=== PATIENT | female | born 1945 | race Caucasian/White ===

== ENCOUNTER → 2018-06-12 09:08 | Outpatient (CLI) | payer OTHER, SELFPAY ==
--- NOTE | 2018-06-12 | DI.MG.S_ITS ---
BILATERAL DIGITAL SCREENING MAMMOGRAM 3D/2D WITH CAD: 06/12/2018 CLINICAL: Routine screening. Comparison is made to exams dated: 11/26/2016 mammogram, 05/18/2016 mammogram, 04/26/2016 mammogram, and 03/09/2015 mammogram - [facility]. There are scattered fibroglandular elements in both breasts. Current study was also evaluated with a Computer Aided Detection (CAD) system. No significant masses, calcifications, or other findings are seen in either breast. There has been no significant interval change. IMPRESSION: NEGATIVE There is no mammographic evidence of malignancy. A 1 year screening mammogram is recommended. This exam was interpreted at Station ID: [id number]. NOTE: For mammograms, a report in lay terms will be sent to the patient. Approximately 15% of breast malignancies will not be visualized mammographically. In the management of a palpable breast mass, a negative mammogram must not discourage biopsy of a clinically suspicious lesion. Electronically Signed By: Elizabeth rodriguez/[email or web address]:06/12/2018 12:17:51 letter sent: Normal Exam ACR BI-RADS Category 1: Negative 3341F
[2018-06-12 10:46] LABS: Add Manual Diff / Slide Review NO; Basophils Percent Auto 0.6 % (0-2); Eosinophils Percent Auto 2.8 % (2-4); Hematocrit 36.2 % (36-46); Lymphocytes Percent Auto 18.6 % (25-40); Mean Corpuscular HGB Conc 33.1 % (30-36); Mean Corpuscular Hemoglobin 32.5 PG (26-34); Mean Corpuscular Volume 98.1 fL (80-100); Monocytes Percent Auto 8.7 % (3-14); Neutrophils Absolute Auto 4400 /uL (3000-5900); Neutrophils Percent Auto 69.3 % (50-75); Platelet Count 215 X10^3/uL (150-400); Red Blood Cell Count 3.69 X10^6/uL (4.0-5.2); Red Cell Distribution Width 13.7 % (11.6-14.8); White Blood Cell Count 6.3 X10^3/uL (4.5-11.0)
[2018-06-12 12:18] LABS: TSH w/ Reflex to FT4 2.85 uIU/mL (0.47-4.68)
[2018-06-12 12:58] LABS: Alanine Aminotransferase 16 IU/L (9-52); Albumin 4.2 g/dL (3.5-5.0); Albumin Globulin Ratio 1.4 (1.0-2.8); Alkaline Phosphatase 57 U/L (38-126); Aspartate Aminotransferase 26 IU/L (14-36); BUN Creatinine Ratio 27.1 (6-22); Bilirubin Total 0.5 mg/dL (0.2-1.3); Blood Urea Nitrogen 19 mg/dL (7-17); Calcium 9.1 mg/dL (8.4-10.2); Carbon Dioxide 24 mmol/L (22-32); Chloride 100 mmol/L (98-107); Cholesterol 195 mg/dL (140-199); Estimated Glomerular Filt Rate > 60.0 mL/min (>60); Globulin 2.9 g/dL (1.7-4.1); Glucose 89 mg/dL (80-110); HDL Cholesterol 103 mg/dL (40-60); HEMOLYSIS < 15 (0-50); LDL Cholesterol Calculated 49 mg/dL (<100); Potassium 4.3 mmol/L (3.4-5.1); Sodium 137 mmol/L (137-145); Total Protein 7.1 g/dL (6.3-8.2); Triglycerides 217 mg/dL (35-150)
[2018-06-26 20:49] LABS: Fecal Immunochemical Test NOT DETECTED
== END ==
PROVIDERS: PCP Family Medicine; Visit Provider Family Medicine
DX: Z12.31 Encounter for screening mammogram for malignant neoplasm of breast (principal); I10 Essential (primary) hypertension
CPT/HCPCS: 36415; 77063; 77067; 80053; 80061; 82274; 84443; 85025

== ENCOUNTER → 2018-06-26 08:51 | Outpatient (CLI) | payer OTHER, SELFPAY | PROVIDERS: PCP Family Medicine; Visit Provider Family Medicine | DX: Z53.8 Procedure and treatment not carried out for other reasons (principal) ==

== ENCOUNTER → 2019-06-16 08:45 | Outpatient (CLI) | payer OTHER, SELFPAY ==
--- NOTE | 2019-06-16 | DI.MG.S_ITS ---
BILATERAL DIGITAL SCREENING MAMMOGRAM 3D/2D WITH CAD: 06/16/2019 CLINICAL: Routine screening. Comparison is made to exams dated: 06/12/2018 mammogram, 04/26/2016 mammogram, and 03/09/2015 mammogram - [facility]. There are scattered fibroglandular elements in both breasts. Current study was also evaluated with a Computer Aided Detection (CAD) system. No significant masses, calcifications, or other findings are seen in either breast. There has been no significant interval change. IMPRESSION: NEGATIVE There is no mammographic evidence of malignancy. A 1 year screening mammogram is recommended. This exam was interpreted at Station ID: [id number]. NOTE: For mammograms, a report in lay terms will be sent to the patient. Approximately 15% of breast malignancies will not be visualized mammographically. In the management of a palpable breast mass, a negative mammogram must not discourage biopsy of a clinically suspicious lesion. Electronically Signed By: Vadim yarbrough/anya:06/16/2019 09:53:17 letter sent: Normal Exam ACR BI-RADS Category 1: Negative 3341F
[2019-06-16 10:50] LABS: Add Manual Diff / Slide Review NO; Basophils Absolute Auto 0 /uL (0-100); Basophils Percent Auto 0.9 % (0-2); Eosinophils Absolute Auto 200 /uL (0-450); Eosinophils Percent Auto 3.3 % (2-4); Hematocrit 35.4 % (36-46); Hemoglobin 11.9 g/dL (12.0-16.0); Lymphocytes Absolute Auto 1000 /uL (1100-4500); Lymphocytes Percent Auto 20.8 % (25-40); Mean Corpuscular HGB Conc 33.6 % (30-36); Mean Corpuscular Hemoglobin 32.9 PG (26-34); Mean Corpuscular Volume 97.8 fL (80-100); Monocytes Absolute Auto 400 /uL (0-900); Monocytes Percent Auto 7.9 % (3-14); Neutrophils Absolute Auto 3300 /uL (1500-7000); Neutrophils Percent Auto 67.1 % (50-75); Platelet Count 243 X10^3/uL (150-400); Red Blood Cell Count 3.62 X10^6/uL (4.0-5.2); White Blood Cell Count 4.9 X10^3/uL (4.5-11.0)
[2019-06-16 11:08] LABS: Alanine Aminotransferase 12 IU/L (<35); Albumin 4.1 g/dL (3.5-5.0); Albumin Globulin Ratio 1.4 (1.0-2.8); Alkaline Phosphatase 53 U/L (38-126); Aspartate Aminotransferase 20 IU/L (14-36); BUN Creatinine Ratio 27.1 (6-22); Bilirubin Total 0.3 mg/dL (0.2-1.3); Blood Urea Nitrogen 19 mg/dL (7-17); Calcium 9.3 mg/dL (8.4-10.2); Carbon Dioxide 28 mmol/L (22-32); Chloride 100 mmol/L (98-107); Cholesterol 213 mg/dL (140-199); Estimated Glomerular Filt Rate > 60.0 mL/min (>60); Globulin 2.9 g/dL (1.7-4.1); Glucose 79 mg/dL (80-110); HDL Cholesterol 98 mg/dL (40-60); HEMOLYSIS < 15 (0-50); LDL Cholesterol Calculated 49 mg/dL (<100); Potassium 4.5 mmol/L (3.4-5.1); Sodium 135 mmol/L (137-145); Triglycerides 331 mg/dL (35-150)
[2019-06-16 11:37] LABS: TSH w/ Reflex to FT4 2.69 uIU/mL (0.47-4.68)
== END ==
PROVIDERS: PCP Family Medicine; Visit Provider Family Medicine
DX: Z12.31 Encounter for screening mammogram for malignant neoplasm of breast (principal); I10 Essential (primary) hypertension
CPT/HCPCS: 36415; 77063; 77067; 80053; 80061; 84443; 85025

== ENCOUNTER → 2020-06-21 10:34 | Outpatient (CLI) | payer OTHER, SELFPAY ==
--- NOTE | 2020-06-21 | DI.MG.S_ITS ---
BILATERAL DIGITAL SCREENING MAMMOGRAM 3D/2D WITH CAD: 06/21/2020 CLINICAL: Routine screening. Comparison is made to exams dated: 06/16/2019 mammogram, 06/12/2018 mammogram, 04/26/2016 mammogram, 11/26/2016 mammogram, 05/18/2016 mammogram, and 03/09/2015 mammogram - [facility]. There are scattered fibroglandular elements in both breasts. Current study was also evaluated with a Computer Aided Detection (CAD) system. No significant masses, calcifications, or other findings are seen in either breast. There has been no significant interval change. IMPRESSION: NEGATIVE There is no mammographic evidence of malignancy. A 1 year screening mammogram is recommended. This exam was interpreted at Station ID: [id number]. NOTE: For mammograms, a report in lay terms will be sent to the patient. Approximately 15% of breast malignancies will not be visualized mammographically. In the management of a palpable breast mass, a negative mammogram must not discourage biopsy of a clinically suspicious lesion. Electronically Signed By: Goldy grier/anya:06/21/2020 14:29:09 letter sent: Normal Exam ACR BI-RADS Category 1: Negative 3341F
== END ==
PROVIDERS: PCP Family Medicine; Referring Provider Family Medicine; Visit Provider Family Medicine
DX: Z12.31 Encounter for screening mammogram for malignant neoplasm of breast (principal)
CPT/HCPCS: 77063; 77067

== ENCOUNTER → 2020-07-14 09:19 | Outpatient (CLI) | payer OTHER, SELFPAY ==
[2020-07-14 11:15] LABS: Alanine Aminotransferase 19 IU/L (<35); Albumin 4.2 g/dL (3.5-5.0); Albumin Globulin Ratio 1.4 (1.0-2.8); Alkaline Phosphatase 55 U/L (38-126); Aspartate Aminotransferase 40 IU/L (14-36); BUN Creatinine Ratio 24.5 (6-22); Bilirubin Total 0.4 mg/dL (0.2-1.3); Blood Urea Nitrogen 24 mg/dL (7-17); Calcium 9.4 mg/dL (8.4-10.2); Carbon Dioxide 26 mmol/L (22-32); Chloride 101 mmol/L (98-107); Cholesterol 214 mg/dL (140-199); Estimated Glomerular Filt Rate 55.5 mL/min (>60); Glucose 80 mg/dL (80-110); HEMOLYSIS < 15 (0-50); Potassium 5.2 mmol/L (3.4-5.1); Sodium 133 mmol/L (137-145); Total Protein 7.2 g/dL (6.3-8.2); Triglycerides 340 mg/dL (35-150)
[2020-07-14 11:25] LABS: HDL Cholesterol 130 mg/dL (40-60); LDL Cholesterol Calculated 16 mg/dL (<100)
[2020-07-15 14:07] LABS: Fecal Immunochemical Test Negative (Negative)
== END ==
PROVIDERS: PCP Family Medicine; Referring Provider Family Medicine; Visit Provider Family Medicine
DX: E78.5 Hyperlipidemia, unspecified (principal); I10 Essential (primary) hypertension; Z12.11 Encounter for screening for malignant neoplasm of colon
CPT/HCPCS: 36415; 80053; 80061; 82274

== ENCOUNTER → 2020-09-21 10:51 | Outpatient (CLI) | payer OTHER, SELFPAY ==
[2020-09-21 12:08] LABS: Blood Urea Nitrogen 17 mg/dL (7-17); Calcium 8.8 mg/dL (8.4-10.2); Carbon Dioxide 28 mmol/L (22-32); Chloride 100 mmol/L (98-107); Estimated Glomerular Filt Rate > 60.0 mL/min (>60); Glucose 88 mg/dL (80-110); HEMOLYSIS < 15 (0-50); Potassium 4.8 mmol/L (3.4-5.1); Sodium 131 mmol/L (137-145)
== END ==
PROVIDERS: PCP Family Medicine; Referring Provider Family Medicine; Visit Provider Family Medicine
DX: E78.5 Hyperlipidemia, unspecified (principal); I10 Essential (primary) hypertension
CPT/HCPCS: 36415; 80048

== ENCOUNTER → 2022-09-12 18:30 | Outpatient (ROUT) | payer OTHER, SELFPAY | PROVIDERS: PCP Family Medicine; Visit Provider Dermatology | DX: L08.9 Local infection of the skin and subcutaneous tissue, unspecified (principal) | CPT/HCPCS: 87070; 87075; 87077; 87147; 87185; 87186; 87205 ==

== ENCOUNTER → 2022-10-15 11:35 | Outpatient (CLI) | payer OTHER, SELFPAY ==
--- NOTE | 2022-10-15 | DI.MG.S_ITS ---
BILATERAL DIGITAL SCREENING MAMMOGRAM 3D/2D WITH CAD: 10/15/2022 CLINICAL: Routine screening. Comparison is made to exams dated: 06/21/2020 mammogram, 06/16/2019 mammogram, and 06/12/2018 mammogram - . There are scattered areas of fibroglandular density in both breasts (category b / 25%-50% glandular tissue). Current study was also evaluated with a Computer Aided Detection (CAD) system. No significant masses, calcifications, or other findings are seen in either breast. There has been no significant interval change. IMPRESSION: NEGATIVE There is no mammographic evidence of malignancy. A 1 year screening mammogram is recommended. Based on the Tyrer Cuzick model (a risk assessment model) the patient's lifetime risk is 4.0% and her 10 year risk is 0.0%. According to the ACR, ACS, and NCCN guidelines, an annual breast MRI exam along with mammogram is recommended if the patient's lifetime risk is 20% or greater. This exam was interpreted at Station ID: [id number]. NOTE: For mammograms, a report in lay terms will be sent to the patient. Approximately 15% of breast malignancies will not be visualized mammographically. In the management of a palpable breast mass, a negative mammogram must not discourage biopsy of a clinically suspicious lesion. Electronically Signed By: Vadim israel/anya:10/15/2022 16:12:07 letter sent: Normal Exam ACR BI-RADS Category 1: Negative 3341F
== END ==
PROVIDERS: PCP Family Medicine; Referring Provider Family Medicine; Visit Provider Family Medicine
DX: Z12.31 Encounter for screening mammogram for malignant neoplasm of breast (principal)
CPT/HCPCS: 77063; 77067

== ENCOUNTER → 2023-01-25 08:04 | Outpatient (CLI) | payer OTHER, SELFPAY ==
[2023-01-25 08:55] LABS: Add Manual Diff / Slide Review NO; Basophils Absolute Auto 0 /uL (0-100); Eosinophils Absolute Auto 100 /uL (0-450); Eosinophils Percent Auto 3.7 % (2-4); Hematocrit 34.6 % (36-46); Hemoglobin 11.7 g/dL (12.0-16.0); Lymphocytes Absolute Auto 1100 /uL (1100-4500); Mean Corpuscular HGB Conc 33.9 % (30-36); Mean Corpuscular Hemoglobin 32.5 PG (26-34); Mean Corpuscular Volume 95.9 fL (80-100); Monocytes Absolute Auto 500 /uL (0-900); Monocytes Percent Auto 11.4 % (3-14); Neutrophils Absolute Auto 2300 /uL (1500-7000); Neutrophils Percent Auto 56.9 % (50-75); Platelet Count 275 X10^3/uL (150-400); Red Blood Cell Count 3.61 X10^6/uL (4.0-5.2); Red Cell Distribution Width 13.1 % (11.6-14.8)
[2023-01-25 09:41] LABS: Alanine Aminotransferase 14 IU/L (<35); Albumin Globulin Ratio 1.3 (1.0-2.8); Alkaline Phosphatase 44 U/L (38-126); Aspartate Aminotransferase 19 IU/L (14-36); Bilirubin Total 0.4 mg/dL (0.2-1.3); Blood Urea Nitrogen 17 mg/dL (7-17); Calcium 9.1 mg/dL (8.4-10.2); Carbon Dioxide 26 mmol/L (22-32); Chloride 92 mmol/L (98-107); Estimated Glomerular Filt Rate > 60 mL/min (>60); Glucose 89 mg/dL (80-110); HEMOLYSIS < 15 (0-50); Potassium 5.3 mmol/L (3.4-5.1); Sodium 125 mmol/L (137-145)
[2023-01-25 09:44] LABS: Microalbumi Creatinin Ratio Ur 12.3 ug/mg CR (<30); Microalbumin Urine Random 1.1 mg/dL (0-1.6)
== END ==
PROVIDERS: PCP Family Medicine; Referring Provider Family Medicine; Visit Provider Family Medicine
DX: I10 Essential (primary) hypertension (principal); K21.9 Gastro-esophageal reflux disease without esophagitis; Z79.890 Hormone replacement therapy
CPT/HCPCS: 36415; 80053; 82043; 82570; 85025

== ENCOUNTER → 2024-11-24 14:46 | Outpatient (CLI) | payer OTHER, MEDICAID, SELFPAY | PROVIDERS: PCP Family Medicine; Referring Provider Family Medicine; Visit Provider Surgery | DX: T81.89XA Other complications of procedures, not elsewhere classified, initial encounter (principal); S01.00XA Unspecified open wound of scalp, initial encounter | CPT/HCPCS: 87070; 87075; 87205 ==

== ENCOUNTER → 2024-11-25 11:49 | Outpatient (CLI) | payer OTHER, MEDICAID, SELFPAY | PROVIDERS: PCP Family Medicine; Referring Provider Family Medicine; Visit Provider Surgery | DX: T81.89XA Other complications of procedures, not elsewhere classified, initial encounter (principal); S01.00XA Unspecified open wound of scalp, initial encounter | CPT/HCPCS: 11042; 99203; 99213 ==

== ENCOUNTER → 2024-12-02 14:00 | Outpatient (CLI) | payer OTHER, MEDICAID, SELFPAY | PROVIDERS: PCP Family Medicine; Referring Provider Family Medicine; Visit Provider Surgery | DX: T81.89XA Other complications of procedures, not elsewhere classified, initial encounter (principal); S01.00XA Unspecified open wound of scalp, initial encounter | CPT/HCPCS: 11042 ==

== ENCOUNTER → 2024-12-08 11:28 | Outpatient (CLI) | payer OTHER, MEDICAID, SELFPAY | PROVIDERS: PCP Family Medicine; Referring Provider Family Medicine; Visit Provider Surgery | DX: T81.89XA Other complications of procedures, not elsewhere classified, initial encounter (principal); S01.00XA Unspecified open wound of scalp, initial encounter | CPT/HCPCS: 11044 ==

== ENCOUNTER → 2024-12-16 15:46 | Outpatient (CLI) | payer OTHER, SELFPAY | LOC: WC 15:47 | PROVIDERS: PCP Family Medicine; Referring Provider Family Medicine; Visit Provider Surgery | DX: S01.00XA Unspecified open wound of scalp, initial encounter (principal); L98.8 Other specified disorders of the skin and subcutaneous tissue; I10 Essential (primary) hypertension | CPT/HCPCS: 11042 ==

== ENCOUNTER → 2024-12-23 10:56 | Outpatient (CLI) | payer OTHER, SELFPAY | LOC: WC 10:57 | PROVIDERS: PCP Family Medicine; Referring Provider Family Medicine; Visit Provider Surgery | DX: T81.89XA Other complications of procedures, not elsewhere classified, initial encounter (principal); S01.00XA Unspecified open wound of scalp, initial encounter; I10 Essential (primary) hypertension; L98.8 Other specified disorders of the skin and subcutaneous tissue | CPT/HCPCS: 11042; 99213 ==

== ENCOUNTER → 2024-12-30 10:40 | Outpatient (CLI) | payer OTHER, MEDICAID, SELFPAY | PROVIDERS: PCP Family Medicine; Referring Provider Family Medicine; Visit Provider Surgery | DX: T81.89XA Other complications of procedures, not elsewhere classified, initial encounter (principal); S01.00XA Unspecified open wound of scalp, initial encounter; Z85.828 Personal history of other malignant neoplasm of skin | CPT/HCPCS: 11042 ==

== ENCOUNTER → 2025-01-06 10:59 | Outpatient (CLI) | payer OTHER, MEDICAID, SELFPAY | PROVIDERS: PCP Family Medicine; Referring Provider Family Medicine; Visit Provider Surgery | DX: T81.89XA Other complications of procedures, not elsewhere classified, initial encounter (principal); S01.00XA Unspecified open wound of scalp, initial encounter | CPT/HCPCS: 11042 ==

== ENCOUNTER → 2025-01-13 13:27 | Outpatient (CLI) | payer OTHER, SELFPAY | LOC: WC 13:28 | PROVIDERS: PCP Family Medicine; Referring Provider Family Medicine; Visit Provider Surgery | DX: T81.89XA Other complications of procedures, not elsewhere classified, initial encounter (principal); S01.00XA Unspecified open wound of scalp, initial encounter | CPT/HCPCS: 11042 ==

== ENCOUNTER → 2025-01-20 15:13 | Outpatient (CLI) | payer OTHER, MEDICAID, SELFPAY | PROVIDERS: PCP Family Medicine; Referring Provider Family Medicine; Visit Provider Surgery | DX: T81.89XA Other complications of procedures, not elsewhere classified, initial encounter (principal); S01.00XA Unspecified open wound of scalp, initial encounter; Z85.828 Personal history of other malignant neoplasm of skin | CPT/HCPCS: 11042; 99213 ==

== ENCOUNTER → 2025-01-27 10:11 | Outpatient (CLI) | payer OTHER, MEDICAID, SELFPAY | LOC: WC 10:12 | PROVIDERS: PCP Family Medicine; Referring Provider Family Medicine; Visit Provider Surgery | DX: T81.89XA Other complications of procedures, not elsewhere classified, initial encounter (principal); S01.00XA Unspecified open wound of scalp, initial encounter; Z85.828 Personal history of other malignant neoplasm of skin | CPT/HCPCS: 11042 ==

== ENCOUNTER → 2025-02-03 11:41 | Outpatient (CLI) | payer OTHER, MEDICAID, SELFPAY | PROVIDERS: PCP Family Medicine; Referring Provider Family Medicine; Visit Provider Surgery | DX: T81.89XA Other complications of procedures, not elsewhere classified, initial encounter (principal); S01.00XA Unspecified open wound of scalp, initial encounter; Z85.828 Personal history of other malignant neoplasm of skin | CPT/HCPCS: 15275; Q4187 ==

== ENCOUNTER → 2025-02-10 10:59 | Outpatient (CLI) | payer OTHER, MEDICAID, SELFPAY | LOC: WC 11:00 | PROVIDERS: PCP Family Medicine; Referring Provider Family Medicine; Visit Provider Surgery | DX: T81.89XA Other complications of procedures, not elsewhere classified, initial encounter (principal); S01.00XA Unspecified open wound of scalp, initial encounter; Z85.828 Personal history of other malignant neoplasm of skin | CPT/HCPCS: 15275; Q4187 ==

== ENCOUNTER → 2025-02-17 09:21 | Outpatient (CLI) | payer OTHER, MEDICAID, SELFPAY | PROVIDERS: PCP Family Medicine; Referring Provider Family Medicine; Visit Provider Surgery | DX: T81.89XA Other complications of procedures, not elsewhere classified, initial encounter (principal); S01.00XA Unspecified open wound of scalp, initial encounter | CPT/HCPCS: 15275; 99213; Q4187 ==

== ENCOUNTER → 2025-02-24 09:43 | Outpatient (CLI) | payer OTHER, MEDICAID, SELFPAY | LOC: WC 09:43 | PROVIDERS: PCP Family Medicine; Referring Provider Family Medicine; Visit Provider Nurse Practitioner Family | DX: T81.89XA Other complications of procedures, not elsewhere classified, initial encounter (principal); S01.00XA Unspecified open wound of scalp, initial encounter; Z85.828 Personal history of other malignant neoplasm of skin | CPT/HCPCS: 15275; 99213; Q4187 ==

== ENCOUNTER → 2025-03-03 10:44 | Outpatient (CLI) | payer OTHER, MEDICAID, SELFPAY | LOC: WC 10:45 | PROVIDERS: PCP Family Medicine; Referring Provider Family Medicine; Visit Provider Surgery | DX: T81.89XA Other complications of procedures, not elsewhere classified, initial encounter (principal); S01.00XA Unspecified open wound of scalp, initial encounter; C44.42 Squamous cell carcinoma of skin of scalp and neck | CPT/HCPCS: 15275; Q4187 ==

== ENCOUNTER → 2025-03-10 13:14 | Outpatient (CLI) | payer OTHER, MEDICAID, SELFPAY | LOC: WC 13:15 | PROVIDERS: PCP Family Medicine; Referring Provider Family Medicine; Visit Provider Surgery | DX: S01.00XA Unspecified open wound of scalp, initial encounter (principal); T81.89XA Other complications of procedures, not elsewhere classified, initial encounter; L92.9 Granulomatous disorder of the skin and subcutaneous tissue, unspecified; C44.42 Squamous cell carcinoma of skin of scalp and neck; I10 Essential (primary) hypertension | CPT/HCPCS: 11042 ==

== ENCOUNTER → 2025-03-24 11:41 | Outpatient (CLI) | payer OTHER, MEDICAID, SELFPAY ==
[2025-03-24 15:13] LABS: Alanine Aminotransferase 16 IU/L (<35); Albumin 4.3 g/dL (3.5-5.0); Albumin Globulin Ratio 1.3 (1.0-2.8); Alkaline Phosphatase 58 U/L (38-126); Blood Urea Nitrogen 26 mg/dL (7-17); Calcium 9.1 mg/dL (8.4-10.2); Carbon Dioxide 21 mmol/L (22-32); Chloride 95 mmol/L (98-107); Estimated Glomerular Filt Rate 52 mL/min (>60); Globulin 3.3 g/dL (1.7-4.1); Glucose 93 mg/dL (70-99); HEMOLYSIS 16 (0-50); Potassium 5.0 mmol/L (3.4-5.1); Sodium 126 mmol/L (137-145); Total Protein 7.6 g/dL (6.3-8.2)
== END ==
PROVIDERS: PCP Family Medicine; Referring Provider Family Medicine; Visit Provider Family Medicine
DX: I10 Essential (primary) hypertension (principal); R60.0 Localized edema
CPT/HCPCS: 80053; 87070; 87205

== ENCOUNTER → 2025-04-07 14:29 | Outpatient (CLI) | payer OTHER, MEDICAID, SELFPAY | LOC: WC 14:30 | PROVIDERS: PCP Family Medicine; Referring Provider Family Medicine; Visit Provider Surgery | DX: T81.89XA Other complications of procedures, not elsewhere classified, initial encounter (principal); S01.00XA Unspecified open wound of scalp, initial encounter; L92.9 Granulomatous disorder of the skin and subcutaneous tissue, unspecified; C44.42 Squamous cell carcinoma of skin of scalp and neck; I10 Essential (primary) hypertension | CPT/HCPCS: 15275 ==

== ENCOUNTER → 2025-04-14 10:00 | Outpatient (CLI) | payer OTHER, MEDICAID, SELFPAY | LOC: WC 10:01 | PROVIDERS: PCP Family Medicine; Referring Provider Family Medicine; Visit Provider Physician Assistant | DX: T81.89XA Other complications of procedures, not elsewhere classified, initial encounter (principal); S01.00XA Unspecified open wound of scalp, initial encounter | CPT/HCPCS: 11042; 99213 ==

== ENCOUNTER → 2025-04-21 15:11 | Outpatient (CLI) | payer OTHER, MEDICAID, SELFPAY | LOC: WC 15:26 | PROVIDERS: PCP Family Medicine; Referring Provider Family Medicine; Visit Provider Surgery | DX: T81.89XA Other complications of procedures, not elsewhere classified, initial encounter (principal); S01.00XA Unspecified open wound of scalp, initial encounter; C44.92 Squamous cell carcinoma of skin, unspecified | CPT/HCPCS: 15275; Q4187 ==

== ENCOUNTER → 2025-04-28 10:12 | Outpatient (CLI) | payer OTHER, MEDICAID, SELFPAY | LOC: WC 10:12 | PROVIDERS: PCP Family Medicine; Referring Provider Family Medicine; Visit Provider Surgery | DX: S01.00XA Unspecified open wound of scalp, initial encounter (principal); T81.89XA Other complications of procedures, not elsewhere classified, initial encounter; C44.92 Squamous cell carcinoma of skin, unspecified | CPT/HCPCS: 15275; Q4186 ==

== ENCOUNTER → 2025-05-05 12:00 | Outpatient (CLI) | payer OTHER, MEDICAID, SELFPAY | LOC: WC 12:03 | PROVIDERS: PCP Family Medicine; Referring Provider Family Medicine; Visit Provider Surgery | DX: T81.89XA Other complications of procedures, not elsewhere classified, initial encounter (principal); S01.00XA Unspecified open wound of scalp, initial encounter; C44.92 Squamous cell carcinoma of skin, unspecified | CPT/HCPCS: 15275; Q4186 ==

== ENCOUNTER → 2025-05-12 10:35 | Outpatient (CLI) | payer OTHER, MEDICAID, SELFPAY | LOC: WC 10:36 | PROVIDERS: PCP Family Medicine; Referring Provider Family Medicine; Visit Provider Surgery | DX: T81.89XA Other complications of procedures, not elsewhere classified, initial encounter (principal); S01.00XA Unspecified open wound of scalp, initial encounter; Z85.828 Personal history of other malignant neoplasm of skin; Z87.891 Personal history of nicotine dependence; I10 Essential (primary) hypertension | CPT/HCPCS: 11042; 99213 ==

== ENCOUNTER → 2025-05-19 15:54 | Outpatient (CLI) | payer OTHER, MEDICAID, SELFPAY | LOC: WC 15:55 | PROVIDERS: PCP Family Medicine; Referring Provider Family Medicine; Visit Provider Surgery | DX: T81.89XA Other complications of procedures, not elsewhere classified, initial encounter (principal); S01.00XA Unspecified open wound of scalp, initial encounter; L98.8 Other specified disorders of the skin and subcutaneous tissue; L92.9 Granulomatous disorder of the skin and subcutaneous tissue, unspecified; C44.92 Squamous cell carcinoma of skin, unspecified; I10 Essential (primary) hypertension | CPT/HCPCS: 11042 ==

== ENCOUNTER → 2025-05-26 16:34 | Outpatient (CLI) | payer OTHER, MEDICAID, SELFPAY | LOC: WC 16:35 | PROVIDERS: PCP Family Medicine; Referring Provider Family Medicine; Visit Provider Surgery | DX: T81.89XA Other complications of procedures, not elsewhere classified, initial encounter (principal); L98.8 Other specified disorders of the skin and subcutaneous tissue; S01.00XA Unspecified open wound of scalp, initial encounter; C44.92 Squamous cell carcinoma of skin, unspecified | CPT/HCPCS: 11042 ==

== ENCOUNTER → 2025-06-02 10:54 | Outpatient (CLI) | payer OTHER, MEDICAID, SELFPAY | LOC: WC 10:57 | PROVIDERS: PCP Family Medicine; Referring Provider Family Medicine; Visit Provider Surgery | DX: T81.89XA Other complications of procedures, not elsewhere classified, initial encounter (principal); S01.00XA Unspecified open wound of scalp, initial encounter; C44.92 Squamous cell carcinoma of skin, unspecified | CPT/HCPCS: 11042 ==

== ENCOUNTER → 2025-06-09 11:54 | Outpatient (CLI) | payer OTHER, MEDICAID, SELFPAY | LOC: WC 11:57 | PROVIDERS: PCP Family Medicine; Referring Provider Family Medicine; Visit Provider Surgery | DX: T81.89XA Other complications of procedures, not elsewhere classified, initial encounter (principal); S01.00XA Unspecified open wound of scalp, initial encounter; L98.8 Other specified disorders of the skin and subcutaneous tissue; L92.9 Granulomatous disorder of the skin and subcutaneous tissue, unspecified; Z85.828 Personal history of other malignant neoplasm of skin; I10 Essential (primary) hypertension | CPT/HCPCS: 11042 ==

== ENCOUNTER → 2025-06-16 11:59 | Outpatient (CLI) | payer OTHER, MEDICAID, SELFPAY | LOC: WC 11:59 | PROVIDERS: PCP Family Medicine; Referring Provider Family Medicine; Visit Provider Surgery | DX: T81.89XA Other complications of procedures, not elsewhere classified, initial encounter (principal); S01.00XA Unspecified open wound of scalp, initial encounter; C44.92 Squamous cell carcinoma of skin, unspecified | CPT/HCPCS: 11042; 99213 ==

== ENCOUNTER → 2025-06-23 11:31 | Outpatient (CLI) | payer OTHER, MEDICAID, SELFPAY | LOC: WC 11:32 | PROVIDERS: PCP Family Medicine; Referring Provider Family Medicine; Visit Provider Surgery | DX: T81.89XA Other complications of procedures, not elsewhere classified, initial encounter (principal); S01.00XA Unspecified open wound of scalp, initial encounter; C44.92 Squamous cell carcinoma of skin, unspecified | CPT/HCPCS: 11042 ==

== ENCOUNTER → 2025-06-30 10:26 | Outpatient (CLI) | payer OTHER, MEDICAID, SELFPAY ==
--- OUTSIDE RECORDS SUMMARY | 2025-07-02 15:55 | XMS_ITS | Clinical Summary ---
Author Organization [facility] Address [address] [place] [address] Care Team Providers Care Creative Services Director Name Role Phone Pcp, None Selected Primary Care Provider Unavail able Allergies No known active allergies Medications fluorouraciL (EFUDEX) 5 % cream Apply topically 2 Active estradioL (ESTRACE) 1 mg tablet Take 1 mg by mouth daily 1 Active omeprazole (PriLOSEC) 20 mg capsule 2 Active triamterene-hyd rochlorothiazid (MAXZIDE-25) 37.5-25 mg Take 2 tablets by mouth daily 1 Active mupirocin (BACTROBAN) 2 % ointmentIndicat ions:Nasal vestibulitis,Ch ronic rhinitis Apply to the nostrils 3 times daily for 2 weeks 30 g 1 3 Active Active Problems No known active problems Family History Medical History Relation Comments Cancer Father Hearing loss Father Hypertension Father Heart disease Mother Hypertension Mother Relation Status Comments Father Mother Social History Tobacco Use Types Packs/Day Years Used Date Smoking Tobacco: Former Cigarettes 1 20 - 2000 Smokeless Tobacco: Never Alcohol Use Standard Drinks/Week Comments Yes 21 (1 standard drink = 0.6 oz pu re alcohol) 3 drinks daily Comments Unknown Sex and Gender Information Value Date Recorded Sex Assigned at Not on file Legal Sex Female 11:20 AM PDT Gender Identity Not on file Sexual Orientation Not on file Last Filed Vital Signs Vital Sign Reading Time Taken Comments Blood Pressure 179/78 05/08/2022 9:55 AM PDT Pulse 67 05/08/2022 9:50 AM PDT Temperature 36.3 C (97.3 F) 05/08/2022 9:50 AM PDT Respiratory Rate - - Oxygen Saturation 100% 05/08/2022 9:50 AM PDT Inhaled Oxygen Concentration - - Weight 67.5 kg (148 lb 14.4 oz) 05/08/2022 9:50 AM PDT Height 157.5 cm (5' 2) 05/08/2022 9:50 AM PDT Body Mass Index 27.23 05/08/2022 9:50 AM PDT Plan of Treatment Health Maintenance Due Date Last Done Comments Depression Screening (PHQ-2) 1957 Fall Risk Screening 2010 RSV Patients Over 60 years OR qualifying ( Patients) (1 - 1-dose 75+ series) 2020 COVID-19 Vaccine ( - 2024- season) 2025 12/07/2021, 05/11/2021, 11/03/2020, Additional history exists Influenza Vaccine (#1) 2025 , 06/25/2019, 06/26/2017, Additional history exists DTaP,Tdap,and Td Vaccines (3 - Td or Tdap) 02/16/2026 02/17/2016, 09/06/2010 HM Pneumococcal Adult 50+ Completed 2016, 02/17/2016, 12/27/2014 Zoster Vaccines Completed 12/29/2020, 08/26/2020 HPV Vaccines Aged Out No longer eligi ble based on patient's age to complete this topic Hepatitis A Vaccines Aged Out No long er eligible based on patient's age to complete this topic Hepatitis B Vaccines Aged Out No long er eligible based on patient's age to complete this topic IPV Vaccines Aged Out No longer eligi ble based on patient's age to complete this topic MMR Vaccines Aged Out No longer eligi ble based on patient's age to complete this topic Insurance [facility] Care Teams Creative Services Director Relationship Specialty Start Date End Date Pcp, None Selected PCP - General 11/26/24
--- OUTSIDE RECORDS SUMMARY | 2025-07-02 15:55 | XMS_ITS | Encounter Summary ---
Author Organization [facility] Address [address] [place] [address] Care Team Providers Care Power Press Supervisor Name Role Phone Pcp, None Selected Primary Care Provider Unavail able Reason for Visit * Reason Comments Med Refill Encounter Details Date Type Department Care Team (Late st Contact Info) Description 06/15/2023 Refill [facility] [place] [address] [place] [address] [place] [id number] Jv Liu MD [address] [place] [address] Nasal vestibulitis; Chronic rhinitis Social History Tobacco Use Types Packs/Day Years Used Date Smoking Tobacco: Former Cigarettes 1 20 1 981 - 2000 Smokeless Tobacco: Never Alcohol Use Standard Drinks/Week Comments Yes 21 (1 standard drink = 0.6 oz pu re alcohol) 3 drinks daily Comments Unknown Sex and Gender Information Value Date Recorded Sex Assigned at Not on file Legal Sex Female 11:20 AM PDT Gender Identity Not on file Sexual Orientation Not on file documented as of this encounter Miscellaneous Notes * Telephone Encounter - Maureen Pineda MA - 06/18/2023 9:30 AM PST Needs follow-up appointment before further refills documented in this encounter Plan of Treatment Not on file documented as of this encounter Visit Diagnoses Diagnosis Nasal vestibulitis Other diseases of nasal cavity and sinuses Chronic rhinitis documented in this encounter Care Teams Power Press Supervisor Relationship Specialty Start Date End Date Pcp, None Selected PCP - General 11/26/24 documented as of this encounter
== END ==
LOC: WC 11:21
PROVIDERS: PCP Family Medicine; Referring Provider Family Medicine; Visit Provider Surgery
DX: T81.89XA Other complications of procedures, not elsewhere classified, initial encounter (principal); S01.00XA Unspecified open wound of scalp, initial encounter; C44.92 Squamous cell carcinoma of skin, unspecified
CPT/HCPCS: 11042

== ENCOUNTER → 2025-07-07 10:23 | Outpatient (CLI) | payer OTHER, MEDICAID, SELFPAY | LOC: WC 10:24 | PROVIDERS: PCP Family Medicine; Referring Provider Family Medicine; Visit Provider Nurse Practitioner Family | DX: T81.89XA Other complications of procedures, not elsewhere classified, initial encounter (principal); S01.00XA Unspecified open wound of scalp, initial encounter | CPT/HCPCS: 99212 ==

== ENCOUNTER → 2025-07-14 10:38 | Outpatient (CLI) | payer OTHER, MEDICAID, SELFPAY | LOC: WC 10:39 | PROVIDERS: PCP Family Medicine; Referring Provider Family Medicine; Visit Provider Surgery | DX: T81.89XA Other complications of procedures, not elsewhere classified, initial encounter (principal); S01.00XA Unspecified open wound of scalp, initial encounter; C44.92 Squamous cell carcinoma of skin, unspecified | CPT/HCPCS: 11042; 99213 ==

== ENCOUNTER → 2025-07-26 14:48 | Outpatient (CLI) | payer OTHER, MEDICAID, SELFPAY | LOC: WC 14:48 | PROVIDERS: PCP Family Medicine; Referring Provider Family Medicine; Visit Provider Surgery | DX: T81.89XA Other complications of procedures, not elsewhere classified, initial encounter (principal); S01.00XA Unspecified open wound of scalp, initial encounter; C44.92 Squamous cell carcinoma of skin, unspecified | CPT/HCPCS: 11042 ==

== ENCOUNTER → 2025-08-02 10:41 | Outpatient (CLI) | payer OTHER, MEDICAID, SELFPAY | LOC: WC 10:41 | PROVIDERS: PCP Family Medicine; Referring Provider Family Medicine; Visit Provider Surgery | DX: T81.89XA Other complications of procedures, not elsewhere classified, initial encounter (principal); S01.00XA Unspecified open wound of scalp, initial encounter; C44.92 Squamous cell carcinoma of skin, unspecified | CPT/HCPCS: 11042 ==

== ENCOUNTER → 2025-08-09 16:31 | Outpatient (CLI) | payer OTHER, MEDICAID, SELFPAY | LOC: WC 16:31 | PROVIDERS: PCP Family Medicine; Referring Provider Family Medicine; Visit Provider Surgery | DX: T81.89XA Other complications of procedures, not elsewhere classified, initial encounter (principal); S01.00XA Unspecified open wound of scalp, initial encounter; L92.8 Other granulomatous disorders of the skin and subcutaneous tissue; C44.92 Squamous cell carcinoma of skin, unspecified | CPT/HCPCS: 11042 ==